=== PATIENT | female | born 1970 | race Caucasian/White ===

== ENCOUNTER 2019-01-28 14:00 | Outpatient (RCR) | payer OTHER ==
[2018-12-17 15:38] LABS: BASOPHILS % (AUTO) 1 % (0-10); EOSINOPHILS # (AUTO) 0.1 10^3/uL (0.0-0.3); EOSINOPHILS % (AUTO) 1 % (0-10); HEMATOCRIT 44 % (35-52); HEMOGLOBIN 14.9 G/DL (11.5-16.0); LYMPHOCYTES # (AUTO) 2.7 X 10^3 (1.0-4.0); LYMPHOCYTES % (AUTO) 32 % (12-44); MEAN CORPUSCULAR HEMOGLOBIN 31 PG (25-34); MEAN CORPUSCULAR HGB CONC 34 G/DL (32-36); MEAN CORPUSCULAR VOLUME 90 FL (80-99); MEAN PLATELET VOLUME 12.2 FL (7.4-10.4); MONOCYTES # (AUTO) 0.7 X 10^3 (0.0-1.0); MONOCYTES % (AUTO) 8 % (0-12); NEUTROPHILS % (AUTO) 59 % (42-75); PLATELET COUNT 205 10^3/uL (130-400); RED CELL DISTRIBUTION WIDTH 12.8 % (10.0-14.5); WHITE BLOOD COUNT 8.5 10^3/uL (4.3-11.0)
[2018-12-17 16:03] LABS: ALANINE AMINOTRANSFERASE 50 U/L (0-55); ALBUMIN 3.9 GM/DL (3.2-4.5); ALKALINE PHOSPHATASE 85 U/L (40-136); BILIRUBIN,TOTAL 0.3 MG/DL (0.1-1.0); BUN/CREATININE RATIO 16; CALCIUM 9.4 MG/DL (8.5-10.1); CARBON DIOXIDE 24 MMOL/L (21-32); CHLORIDE 101 MMOL/L (98-107); CREATININE SERUM 0.91 MG/DL (0.60-1.30); GFR ESTIMATED > 60; GLUCOSE 352 MG/DL (70-105); POTASSIUM 4.1 MMOL/L (3.6-5.0); SODIUM 134 MMOL/L (135-145); TOTAL PROTEIN 6.8 GM/DL (6.4-8.2)
[2019-01-01 15:18] LABS: BASOPHILS % (AUTO) 0 % (0-10); EOSINOPHILS # (AUTO) 0.1 10^3/uL (0.0-0.3); EOSINOPHILS % (AUTO) 1 % (0-10); HEMATOCRIT 45 % (35-52); HEMOGLOBIN 15.6 G/DL (11.5-16.0); LYMPHOCYTES # (AUTO) 2.7 X 10^3 (1.0-4.0); LYMPHOCYTES % (AUTO) 31 % (12-44); MEAN CORPUSCULAR HEMOGLOBIN 31 PG (25-34); MEAN CORPUSCULAR HGB CONC 35 G/DL (32-36); MEAN CORPUSCULAR VOLUME 89 FL (80-99); MEAN PLATELET VOLUME 12.1 FL (7.4-10.4); MONOCYTES # (AUTO) 0.6 X 10^3 (0.0-1.0); MONOCYTES % (AUTO) 7 % (0-12); NEUTROPHILS # (AUTO) 5.1 X 10^3 (1.8-7.8); NEUTROPHILS % (AUTO) 60 % (42-75); PLATELET COUNT 226 10^3/uL (130-400); RED CELL DISTRIBUTION WIDTH 12.8 % (10.0-14.5); WHITE BLOOD COUNT 8.6 10^3/uL (4.3-11.0)
[2019-01-01 15:35] LABS: ALANINE AMINOTRANSFERASE 62 U/L (0-55); ALBUMIN 4.3 GM/DL (3.2-4.5); ALKALINE PHOSPHATASE 83 U/L (40-136); BILIRUBIN,TOTAL 0.4 MG/DL (0.1-1.0); BUN/CREATININE RATIO 14; CALCIUM 9.7 MG/DL (8.5-10.1); CARBON DIOXIDE 23 MMOL/L (21-32); CHLORIDE 100 MMOL/L (98-107); CREATININE SERUM 0.92 MG/DL (0.60-1.30); GFR ESTIMATED > 60; GLUCOSE 375 MG/DL (70-105); POTASSIUM 4.2 MMOL/L (3.6-5.0); SODIUM 135 MMOL/L (135-145); TOTAL PROTEIN 7.5 GM/DL (6.4-8.2)
[~2019-01-28] VITALS: Ht 175.3 cm; Wt 118.8 kg
[~2019-01-28 14:00] MED LIST: NIVOLUMAB 240 MG in NS (IVPB) CANCER CENTER 100 ML IV SCH; NIVOLUMAB 480 MG in NS (IVPB) CANCER CENTER 100 ML IV SCH; NS IV 500 ML (CANCER CENTER) IV SCH
[2019-01-28 14:30] LABS: BASOPHILS % (AUTO) 0 % (0-10); EOSINOPHILS # (AUTO) 0.1 10^3/uL (0.0-0.3); EOSINOPHILS % (AUTO) 1 % (0-10); HEMATOCRIT 43 % (35-52); HEMOGLOBIN 15.1 G/DL (11.5-16.0); LYMPHOCYTES # (AUTO) 2.2 X 10^3 (1.0-4.0); LYMPHOCYTES % (AUTO) 24 % (12-44); MEAN CORPUSCULAR HEMOGLOBIN 30 PG (25-34); MEAN CORPUSCULAR HGB CONC 35 G/DL (32-36); MEAN CORPUSCULAR VOLUME 87 FL (80-99); MEAN PLATELET VOLUME 11.9 FL (7.4-10.4); MONOCYTES % (AUTO) 11 % (0-12); NEUTROPHILS # (AUTO) 5.9 X 10^3 (1.8-7.8); NEUTROPHILS % (AUTO) 64 % (42-75); PLATELET COUNT 294 10^3/uL (130-400); RED CELL DISTRIBUTION WIDTH 12.7 % (10.0-14.5); WHITE BLOOD COUNT 9.2 10^3/uL (4.3-11.0)
[2019-01-28 14:52] LABS: ALANINE AMINOTRANSFERASE 31 U/L (0-55); ALBUMIN 3.7 GM/DL (3.2-4.5); ALKALINE PHOSPHATASE 90 U/L (40-136); BILIRUBIN,TOTAL 0.4 MG/DL (0.1-1.0); BUN/CREATININE RATIO 14; CALCIUM 9.1 MG/DL (8.5-10.1); CARBON DIOXIDE 16 MMOL/L (21-32); CHLORIDE 100 MMOL/L (98-107); CREATININE SERUM 0.87 MG/DL (0.60-1.30); GFR ESTIMATED > 60; POTASSIUM 4.6 MMOL/L (3.6-5.0); SODIUM 131 MMOL/L (135-145)
[2019-01-28 14:54] LABS: GLUCOSE 408 MG/DL (70-105)
[2019-01-28] MEDS ORDERED: NIVOLUMAB 240 MG in NS (IVPB) CANCER CENTER 100 ML IV SCH (15:45)
== END 2019-03-04 | disposition home or self-care (01) ==
LOC: ONC 14:00
PROVIDERS: ATTEND Internal Medicine Hematology & Oncology
DX: C43.72 Malignant melanoma of left lower limb, including hip (principal); I10 Essential (primary) hypertension; E66.9 Obesity, unspecified; Z68.38 Body mass index [BMI] 38.0-38.9, adult; Z86.19 Personal history of other infectious and parasitic diseases; Z79.899 Other long term (current) drug therapy
CPT/HCPCS: 36415; 80053; 83615; 83735; 84443; 85025; 96413; 99214

== ENCOUNTER 2019-03-05 11:10 | Outpatient (RCR) | payer OTHER ==
[2019-04-07] MEDS ORDERED: NAPR-1071 PO (15:55)
== END 2019-06-03 | disposition home or self-care (01) ==
LOC: ONC 11:10
PROVIDERS: ATTEND Internal Medicine Hematology & Oncology
DX: C43.72 Malignant melanoma of left lower limb, including hip (principal); I10 Essential (primary) hypertension; E66.9 Obesity, unspecified; Z68.38 Body mass index [BMI] 38.0-38.9, adult; Z86.19 Personal history of other infectious and parasitic diseases; Z79.899 Other long term (current) drug therapy
CPT/HCPCS: 99213

== ENCOUNTER 2019-04-07 14:27 | Emergency (ER) | payer OTHER ==
[~2019-04-07] VITALS: Ht 175.3 cm; Wt 110.2 kg
--- OUTSIDE RECORDS SUMMARY | 2019-04-07 14:32 | XMS REPORT | Continuity of Care Document ---
Author Organization Unknown Address Unknown Allergies Active Description Code Type Severity Reaction Onset Reported/Identified Relationship to Patient Clinical Status Yes No Known Drug Allergies [id number] Drug Allergy Unknown N/A 12/17/2018 Medications There is no data. Problems Date Dx Coded Attending Type Code Diagnosis Diagnosed By 12/11/2018 SIDRAALTAF Ot C43.72 MALIGNANT MELANOMA OF LEFT LOWER LIMB, I 12/11/2018 SIDRA ALTAF N Ot E66.9 OBESITY, UNSPECIFIED 12/11/2018 SIDRA BOBMARISA N Ot I10 ESSENTIAL (PRIMARY) HYPERTENSION 12/11/2018 SIDRAALTAF N Ot Z68.38 BODY MASS INDEX (BMI) 38.0-38.9, ADULT 12/11/2018 SIDRA, ALTAF N Ot Z79.899 OTHER GLOBAL DIRECTOR AIR AND CLIMATE CHANGE (CURRENT) DRUG THERAPY 12/11/2018 SIDRA BOBAN N Ot Z86.19 PERSONAL HISTORY OF OTHER INFECTIOUS AND 12/14/2018 SIRDA ALTAF N Ot C43.72 MALIGNANT MELANOMA OF LEFT LOWER LIMB, I 12/14/2018 SIDRA BOBMARISA N Ot E66.9 OBESITY, UNSPECIFIED 12/14/2018 SIDRA, BOBAN N Ot I10 ESSENTIAL (PRIMARY) HYPERTENSION 12/14/2018 SIDRAALTAF N Ot Z68.38 BODY MASS INDEX (BMI) 38.0-38.9, ADULT 12/14/2018 SIDRA PEYTONAN N Ot Z79.899 OTHER NURSING HOME (CURRENT) DRUG THERAPY 12/14/2018 SIDRA BOBAN N Ot Z86.19 PERSONAL HISTORY OF OTHER INFECTIOUS AND 12/17/2018 SIDRA ALTAF N Ot C43.72 MALIGNANT MELANOMA OF LEFT LOWER LIMB, I 12/17/2018 SIDRA, ALTAF N Ot E66.9 OBESITY, UNSPECIFIED 12/17/2018 SIDRA BOBAN N Ot I10 ESSENTIAL (PRIMARY) HYPERTENSION 12/17/2018 SIDRAALTAF N Ot Z68.38 BODY MASS INDEX (BMI) 38.0-38.9, ADULT 12/17/2018 SIDRAALTAF MORIN N Ot Z79.899 OTHER GLOBAL DIRECTOR AIR AND CLIMATE CHANGE (CURRENT) DRUG THERAPY 12/17/2018 SIDRAALTAF MORIN N Ot Z86.19 PERSONAL HISTORY OF OTHER INFECTIOUS AND 12/31/2018 SIDRAALTAF MORIN N Ot C43.72 MALIGNANT MELANOMA OF LEFT LOWER LIMB, I 12/31/2018 SIDRAALTAF MORIN N Ot E66.9 OBESITY, UNSPECIFIED 12/31/2018 SIDRAALTAF N Ot I10 ESSENTIAL (PRIMARY) HYPERTENSION 12/31/2018 SIDRAALTAF MORIN N Ot Z68.38 BODY MASS INDEX (BMI) 38.0-38.9, ADULT 12/31/2018 SIDRAALTAF MORIN N Ot Z79.899 OTHER NURSING HOME (CURRENT) DRUG THERAPY 12/31/2018 SIDRA, BOBMARISA N Ot Z86.19 PERSONAL HISTORY OF OTHER INFECTIOUS AND 03/04/2019 SIDRA, PEYTONMARISA N Ot C43.72 MALIGNANT MELANOMA OF LEFT LOWER LIMB, I 03/04/2019 SIDRAALTAF MORIN N Ot E66.9 OBESITY, UNSPECIFIED 03/04/2019 SIDRA BOBAN N Ot I10 ESSENTIAL (PRIMARY) HYPERTENSION 03/04/2019 SIDRAALTAF MORIN N Ot Z68.38 BODY MASS INDEX (BMI) 38.0-38.9, ADULT 03/04/2019 ALTAF VALENTE N Ot Z79.899 OTHER NURSING HOME (CURRENT) DRUG THERAPY 03/04/2019 SIDRAALTAF MORIN N Ot Z86.19 PERSONAL HISTORY OF OTHER INFECTIOUS AND 03/05/2019 SIDRAALTAF MORIN N Ot C43.72 MALIGNANT MELANOMA OF LEFT LOWER LIMB, I 03/05/2019 SIDRAALTAF MORIN N Ot E66.9 OBESITY, UNSPECIFIED 03/05/2019 SIDRA BOBAN N Ot I10 ESSENTIAL (PRIMARY) HYPERTENSION 03/05/2019 SIDRAALTAF MORIN N Ot Z68.38 BODY MASS INDEX (BMI) 38.0-38.9, ADULT 03/05/2019 ALTAF VALENTE N Ot Z79.899 OTHER NURSING HOME (CURRENT) DRUG THERAPY 03/05/2019 SIDRA BOBAN N Ot Z86.19 PERSONAL HISTORY OF OTHER INFECTIOUS AND 03/27/2019 SIDRA PEYTONMARISA N Ot C43.72 MALIGNANT MELANOMA OF LEFT LOWER LIMB, I 03/27/2019 ALTAF VALENTE Ot E66.9 OBESITY, UNSPECIFIED 03/27/2019 ALTAF VALENTE N Ot I10 ESSENTIAL (PRIMARY) HYPERTENSION 03/27/2019 ALTAF VALENTE N Ot Z68.38 BODY MASS INDEX (BMI) 38.0-38.9, ADULT 03/27/2019 ALTAF VALENTE N Ot Z79.899 OTHER NURSING HOME (CURRENT) DRUG THERAPY 03/27/2019 ALTAF VALENTE N Ot Z86.19 PERSONAL HISTORY OF OTHER INFECTIOUS AND 03/28/2019 ALTAF VALENTE N Ot C43.72 MALIGNANT MELANOMA OF LEFT LOWER LIMB, I 03/28/2019 ALTAF VALENTE Ot E66.9 OBESITY, UNSPECIFIED 03/28/2019 ALTAF VALENTE N Ot I10 ESSENTIAL (PRIMARY) HYPERTENSION 03/28/2019 ALTAF VALENTE N Ot Z68.38 BODY MASS INDEX (BMI) 38.0-38.9, ADULT 03/28/2019 ALTAF VALENTE N Ot Z79.899 OTHER NURSING HOME (CURRENT) DRUG THERAPY 03/28/2019 ALTAF VALENTE N Ot Z86.19 PERSONAL HISTORY OF OTHER INFECTIOUS AND Procedures There is no data. Results There is no data. Encounters ACCT No. Visit Date/Time Discharge Status Pt. Type Provider Facility Loc./Unit Complaint [id number] 03/05/2019 11:10:00 03/05/2019 23:59:59 CLS Outpatient ALTAF VALENTE Deyanira [facility] ONC [id number] 01/28/2019 14:00:00 03/04/2019 00:01:00 DIS Outpatient SIDRAPEYTONMARISA Mcmillan [facility] ONC
[2019-04-07] MEDS ORDERED: LIDOCAINE 1% INJ 20 ML 20 ML VIAL INJ ONE (15:00)
[2019-04-07] MEDS ORDERED: HYDROcodone/APAP 5 MG/325 MG (LORTAB) TAB PO ONE (15:00)
--- NOTE | 2019-04-07 15:26 | ED Lower Extremity ---
General Chief Complaint: Lower Extremity Stated Complaint: L KNEE PAIN Nursing Triage Note: pt started having knee pain and went to dr Doyle on and had an xray today pt says it is way more swollen et harder to walk. Nursing Sepsis Screen: No Definite Risk Source: patient Exam Limitations: no limitations History of Present Illness Date Seen by Provider: Apr 07, 2019 Time Seen by Provider: 15:24 Initial Comments To ER with left knee swelling for about a week. She saw primary care on of this past week, had an x-ray done which showed a moderate knee effusion, she denies fevers or chills, states that it's coming more swollen and hard her to walk due to pain. She has a history of melanoma with surgical resection 2 on the left leg, follows with [facility] oncology. Scheduled for PET/CT this week at . She denies any preceding injury. Onset: other Severity: moderate Pain/Injury Location: left knee Method of Injury: unknown Modifying Factors: Worse With Movement Allergies and Home Medications Allergies Coded Allergies: No Known Drug Allergies (Unverified , 12/17/18) Patient Home Medication List Home Medication List Reviewed: Yes Review of Systems Constitutional: see HPI EENTM: see HPI Respiratory: no symptoms reported Cardiovascular: no symptoms reported Genitourinary: no symptoms reported Musculoskeletal: see HPI Skin: no symptoms reported Psychiatric/Neurological: No Symptoms Reported Past [id number]-Ghxapf Hx Patient Social History Alcohol Use: Denies Use Recreational Drug Use: No Smoking Status: Never a Smoker Recent Foreign Travel: No Contact w/Someone Who Travel: No Recent Infectious Disease Expo: No Recent Hopitalizations: No Seasonal Allergies Seasonal Allergies: No Past Medical History Section, Tonsillectomy Hypertension Diabetes, Insulin dep Cancer: Yes Melanoma Physical Exam Vital Signs Vital Signs - First Documented 04/07/19 14:33 Temp 97.9 Pulse 74 Resp 18 B/P (MAP) 137/94 (108) Pulse Ox 100 O2 Delivery Room Air Capillary Refill : Less Than 3 Seconds Height, Weight, BMI Height: 5'9.00" Weight: 243lbs. oz. 110.364522ky; BMI Method:Stated General Appearance: WD/WN, no apparent distress HEENT: PERRL/EOMI, normal ENT inspection Respiratory: no respiratory distress, no accessory muscle use Hips: bilateral hip non-tender, bilateral hip normal inspection, bilateral hip normal range of motion Legs: bilateral leg non-tender, bilateral leg normal inspection, bilateral leg normal range of motion Knees: left knee soft tissue tenderness, left knee swelling, left knee other (large palpable effusion without erythema) Ankles: bilateral ankle non-tender, bilateral ankle normal inspection, bilateral ankle normal range of motion Feet: bilateral foot non-tender, bilateral foot normal inspection, bilateral foot normal range of motion Neurologic/Psychiatric: alert, normal mood/affect, oriented x 3 Skin: normal color, warm/dry Progress/Results/Core Measures Results/Orders Lab Results Laboratory Tests Test 04/07/19 15:19 Range/Units Body Fluid Source SYNOVIAL Body Fluid Color YELLOW Body Fluid Appearance MKD CLDY Body Fluid WBC 3400 /uL Body Fluid RBC 50 /uL Body Fluid Crystals NOT SEEN My Orders Orders - UNIQUE SANTANA APRN Body Fluid Cell Count (04/07/19 15:00) Body Fluid Culture (04/07/19 15:00) Crystals,Body Fluid (04/07/19 15:00) Lidocaine 1% Inj 20 Ml (Xylocaine 1% Inj (04/07/19 15:00) Hydrocodone/Apap 5/325 Tablet (Lortab 5 (04/07/19 15:00) Medications Given in ED Current Medications Medications Dose Ordered Sig/Emerita Route Start Time Stop Time Status Last Admin Dose Admin Acetaminophen/ Hydrocodone Bitart 1 tab ONCE ONCE PO 04/07/19 15:00 04/07/19 15:03 DC 04/07/19 15:13 1 TAB Lidocaine HCl 2 ml ONCE ONCE INJ 04/07/19 15:00 04/07/19 15:03 DC 04/07/19 15:18 2 ML Vital Signs/I&O 04/07/19 14:33 Temp 97.9 Pulse 74 Resp 18 B/P (MAP) 137/94 (108) Pulse Ox 100 O2 Delivery Room Air Blood Pressure Mean: 108 Departure Impression Primary Impression: Effusion, left knee Disposition: 01 HOME, SELF-CARE Condition: Stable Departure-Patient Inst. Decision time for Depature: 15:53 Referrals: GABRIEL DOYLE MD (PCP/Family) Primary Care Physician Patient Instructions: NO INSTRUCTIONS GIVEN Add. Discharge Instructions: 1. Anti-inflammatories as directed. At your visit with the oncologist this week E him know that she had a an effusion on the left knee, 90 cc of fluid was drained, there were no crystals visualized and the white cell count was 3400. It is not impossible that this knee effusion is related to the melanoma that you have in your left leg, however I would defer that question to the oncologist. All discharge instructions reviewed with patient and/or family. Voiced understanding. Scripts Naproxen (Naprosyn) 500 Mg Tablet 500 MG PO BID PRN for PAIN-MODERATE TO SEVERE, #30 TAB 0 Refills Prov: UNIQUE SANTANA APRN 04/07/19 UNIQUE SANTANA APRN Apr 07, 2019 15:26
[2019-04-07 15:50] LABS: BODY FLUID APPEARENCE MKD CLDY; BODY FLUID COLOR YELLOW; BODY FLUID RBC COUNT 50 /uL; BODY FLUID SOURCE SYNOVIAL; BODY FLUID WBC TOTAL COUNT 3400 /uL
[2019-04-07] MEDS ORDERED: NAPR-1071 PO (15:55)
[2019-04-07 16:03] VITALS: BP 134/78
[2019-04-07 16:29] LABS: BF OTHER CELLS 0 %; LYMPHOCYTES,BODY FLUID 75 %
== END 2019-04-07 16:03 | disposition home or self-care (01) ==
LOC: EDUNIT# 14:27 → ER 14:28
DX: M25.462 Effusion, left knee (principal); I10 Essential (primary) hypertension; E11.9 Type 2 diabetes mellitus without complications; Z85.828 Personal history of other malignant neoplasm of skin; Z90.89 Acquired absence of other organs
CPT/HCPCS: 87070; 87205; 89051; 89060; 99284